=== PATIENT | male | born 1970 | race Two or more races ===

== ENCOUNTER 2020-07-09 20:23 | Emergency (ER) | payer MEDICAID ==
[~2020-07-09] VITALS: Ht 170.2 cm; Wt 85.0 kg
[2020-07-09 20:24] VITALS: BP 124/77
--- NOTE | 2020-07-09 20:31 | NUR ---
pt denies any allegies or medical hx
== END 2020-07-09 21:14 ==
LOC: ER 20:24
DX: F10.129 Alcohol abuse with intoxication, unspecified (principal); V87.7XXA Person injured in collision between other specified motor vehicles (traffic), initial encounter; Y92.89 Other specified places as the place of occurrence of the external cause; Y93.89 Activity, other specified; Y99.8 Other external cause status
CPT/HCPCS: 99283